=== PATIENT | male | born 1970 | race Caucasian/White ===

== ENCOUNTER → 2023-11-19 15:25 | Outpatient (REF) | payer OTHER, SELFPAY | LOC: HWRAD 15:25 | PROVIDERS: ATTENDING PHYSICIAN Anesthesiology; FAMILY PHYSICIAN Family Medicine | DX: M47.894 Other spondylosis, thoracic region (principal) | CPT/HCPCS: 72128 ==

== ENCOUNTER → 2025-03-08 08:51 | Outpatient (REF) | payer OTHER, SELFPAY | LOC: HWRAD 08:51 | PROVIDERS: ATTENDING PHYSICIAN Family Medicine | DX: N28.1 Cyst of kidney, acquired (principal) | CPT/HCPCS: 76700 ==